=== PATIENT | male | born 1950 | race Hispanic/Latino ===

== ENCOUNTER → 2022-01-07 | Outpatient (CLI) | payer MEDICARE ==
[~2022-01-07] MED LIST: LEVO750T68 PO; LOSA50TA64 PO; SIMV40TA59 PO
[2022-01-07 09:49] LABS: CREATININE 0.8 mg/dL (0.5-1.5)
== END | disposition home or self-care (01) ==
LOC: LAB 09:09
PROVIDERS: ATTEND Internal Medicine Cardiovascular Disease
DX: I10 Essential (primary) hypertension (principal)
CPT/HCPCS: 36415; 80048

== ENCOUNTER → 2022-01-13 | Outpatient (CLI) | payer MEDICARE ==
[~2022-01-13] MED LIST changes: +IOHEXOL 350 MG/ML 100ML INFUS..BTL IV ONE
== END | disposition home or self-care (01) ==
LOC: RAH 10:21
PROVIDERS: ATTEND Internal Medicine Cardiovascular Disease
DX: I71.20 Thoracic aortic aneurysm, without rupture, unspecified (principal); Q25.46 Tortuous aortic arch; K76.0 Fatty (change of) liver, not elsewhere classified; M47.815 Spondylosis without myelopathy or radiculopathy, thoracolumbar region
CPT/HCPCS: 71260; Q9967

== ENCOUNTER 2022-07-08 21:48 | Emergency (ER) | payer MEDICARE, OTHER ==
[~2022-07-08] VITALS: Ht 175.3 cm; Wt 122.0 kg
[~2022-07-08 21:48] MED LIST changes: -IOHEXOL 350 MG/ML 100ML INFUS..BTL IV ONE
[2022-07-08 23:08] LABS: BASOPHILS % (AUTO) 0.8 % (0.0-5.0); HEMATOCRIT 42.5 % (42-54); LYMPHOCYTES % (AUTO) 32.6 % (21.0-51.0); MEAN CORPUSCULAR HEMOGLOBIN 29.2 pg (27.0-33.0); MEAN CORPUSCULAR HGB CONC 33.9 g/dL (32.0-36.0); MEAN CORPUSCULAR VOLUME 86.2 fL (79-99); MONOCYTES % (AUTO) 12.1 % (3.0-13.0); NEUTROPHILS % (AUTO) 50.3 % (40.0-77.0); PLATELET COUNT (AUTO) 212 K/uL (130-400); RED BLOOD CELL COUNT(AUTO) 4.93 MIL/uL (4.50-6.20); RED CELL DISTRIBUTION WIDTH 13.3 % (11.0-15.5)
[2022-07-08 23:09] LABS: APPEARANCE,URINE CLEAR (CLEAR); BILIRUBIN,URINE NEGATIVE (NEGATIVE); COLOR,URINE YELLOW (YELLOW); GLUCOSE, URINE (UA) NEGATIVE (NEGATIVE); KETONES,URINE NEGATIVE (NEGATIVE); LEUKOCYTE ESTERASE ,URINE 75 Leu/uL (NEGATIVE); NITRATE,URINE NEGATIVE (NEGATIVE); OCCULT BLOOD,URINE SMALL (NEGATIVE); PROTEIN,URINE NEGATIVE (NEGATIVE); UROBILINOGEN,URINE 0.2 mg/dL (0.2-1.0)
[2022-07-08 23:20] LABS: INR 0.99 (0.85-1.15); PROTHROMBIN TIME 10.8 SEC (9.6-11.6)
[2022-07-08 23:23] LABS: BACTERIA,URINE RARE /HPF (None Seen); MUCUS,URINE RARE LPF (None Seen); SQUAMOUS EPITHELIAL CELL,UR RARE /HPF (0-2)
[2022-07-08 23:26] LABS: ALBUMIN 4.1 g/dL (3.5-5.0); POTASSIUM 3.6 mmol/L (3.5-5.1); TOTAL PROTEIN, SERUM 7.2 g/dL (6.0-8.3)
[2022-07-08] MEDS ORDERED: IOHEXOL-350 75 ML VIAL IV ONE (23:37)
[2022-07-08 23:53] LABS: B-TYPE NATRIURETIC PEPTIDE 16 pg/mL (0-100)
[2022-07-09] MEDS ORDERED: FOLI20CA PO (01:51)
[2022-07-09] MEDS ORDERED: MULT-264 PO (01:51)
[2022-07-09] MEDS ORDERED: THIA500T3 PO (01:51)
[2022-07-09 01:59] VITALS: BP 138/72
== END 2022-07-09 02:10 | disposition home or self-care (01) ==
LOC: EDH 21:48
DX: R20.0 Anesthesia of skin (principal); R51.9 Headache, unspecified
CPT/HCPCS: 99285; 70450; 71045; 82550; 83721; 84484; 80053; 83880; 85025; 85610; 85730; 87088; 81001; 36415; 70496; 70498; 93005; Q9967

== ENCOUNTER → 2023-05-21 | Outpatient (CLI) | payer OTHER ==
[~2023-05-21] MED LIST changes: +FOLI20CA PO; +MULT-264 PO; +THIA500T3 PO
[2023-05-21 12:24] LABS: CREATININE 0.9 mg/dL (0.5-1.3); POTASSIUM 4.1 mmol/L (3.5-5.1)
== END | disposition home or self-care (01) ==
LOC: LAB 09:27
PROVIDERS: ATTEND Internal Medicine Cardiovascular Disease
DX: I10 Essential (primary) hypertension (principal)
CPT/HCPCS: 36415; 80048

== ENCOUNTER → 2023-05-28 | Outpatient (CLI) | payer OTHER ==
[2023-05-28 16:31] LABS: CREATININE 1.1 mg/dL (0.5-1.3); POTASSIUM 3.7 mmol/L (3.5-5.1)
== END | disposition home or self-care (01) ==
LOC: LAB 15:09
PROVIDERS: ATTEND Internal Medicine Cardiovascular Disease
DX: I10 Essential (primary) hypertension (principal)
CPT/HCPCS: 36415; 80048

== ENCOUNTER → 2023-06-04 | Outpatient (CLI) | payer OTHER ==
[2023-06-04 12:15] LABS: CREATININE 0.9 mg/dL (0.5-1.3); POTASSIUM 4.3 mmol/L (3.5-5.1)
== END | disposition home or self-care (01) ==
LOC: LAB 09:40
PROVIDERS: ATTEND Internal Medicine Cardiovascular Disease
DX: I10 Essential (primary) hypertension (principal)
CPT/HCPCS: 36415; 80048

== ENCOUNTER → 2023-09-22 | Outpatient (CLI) | payer OTHER | END | disposition home or self-care (01) | LOC: SHCH 08:59 | PROVIDERS: ATTEND Internal Medicine Cardiovascular Disease | DX: I08.3 Combined rheumatic disorders of mitral, aortic and tricuspid valves (principal); I11.9 Hypertensive heart disease without heart failure | CPT/HCPCS: 93306 ==

== ENCOUNTER → 2024-06-02 | Outpatient (CLI) | payer OTHER ==
[2024-06-02 12:28] LABS: CREATININE 0.9 mg/dL (0.5-1.3); POTASSIUM 4.3 mmol/L (3.5-5.1)
== END | disposition home or self-care (01) ==
LOC: LAB 08:09
PROVIDERS: ATTEND Internal Medicine Cardiovascular Disease
DX: I10 Essential (primary) hypertension (principal)
CPT/HCPCS: 36415; 80048

== ENCOUNTER → 2024-06-08 | Outpatient (CLI) | payer OTHER ==
[~2024-06-08] MED LIST changes: +IOHEXOL-350 75 ML VIAL IV ONE
--- NOTE | 2024-06-08 15:37 | HMCIMG ---
CT ANGIO CHEST/THORAX AAA HISTORY: Follow-up thoracic aortic aneurysm COMPARISON: 01/13/2017 TECHNIQUE: CT angiography of the chest was performed. The study was performed using angiographic technique with maximum intensity projection reconstruction images. Patient was given 75 cc of Omnipaque through intravenous route. FINDINGS: No CT evidence of filling defect is seen to suggest pulmonary embolus. No CT evidence of aortic dissection is seen. Bilateral pulmonary infiltrates are seen. There are interstitial fibrosis. Tortuosity of the aorta is seen. Ascending thoracic aorta measures 4 x 3.9 cm unchanged. Descending thoracic aorta measure 3.4 x 3[address] evidence of pleural effusion or pericardial effusion is seen. The heart is enlarged. No evidence of adrenal mass is seen. Degenerative changes of the spine are noted. IMPRESSION: 1. No CT evidence of aortic dissection is seen. There is tortuosity of aorta. Ascending thoracic aortic aneurysm is again seen measuring 4 x [address] was performed with one or more following dose reduction techniques: automated exposure control, adjustment of the mA and kv according to patient's size, or use of a iterative reconstruction technique.
== END | disposition home or self-care (01) ==
LOC: RAH 10:35
PROVIDERS: ATTEND Internal Medicine Cardiovascular Disease
DX: I71.20 Thoracic aortic aneurysm, without rupture, unspecified (principal); M47.814 Spondylosis without myelopathy or radiculopathy, thoracic region
CPT/HCPCS: 71275; Q9967